=== PATIENT | female | born 1965 | race Caucasian/White ===

== ENCOUNTER → 2016-07-18 | Day surgery (SDC) | payer BC ==
[~2016-07-18] MED LIST: CLIMARA 0.1 MG0.1 MG EXT; ESTRACE0.5 MG PO; FUROSEMIDE40 MG PO; IBUPROFEN800 MG PO; LEXAPRO20 MG PO; LINESS PO; LINZESS290 MCG PO; LORTAB 10-3251 EACH PO; NAPROSYN-EC500 M1 PO; NORCO 10-325 TA1 TAB PO; OXYCODONE HCL15 MG PO; OXYCODONE HCL20 M1 PO; OXYCODONE15 MG PO; POTASSIUM CHLO20 ME1 PO; PROZAC PO; PROZAC40 MG PO; SIMVASTATIN40 MG PO; STRATTERA PO; STRATTERA40 MG PO; TOPAMAX PO; XANAX1 MG PO; ZANAFLEX4 M1 PO
--- NOTE | ~2016-07-18 | OR ---
Unit #: [id number] #: [id number] Patient: ARLENE BELL [id number] [address] [place], [place] [address] [id number] O MR#: [id number] NAME: ARLENE BELL ROOM: Date of Procedure: 07/18/2016 Admission Date: 07/18/2016 Surgeon: Chris Ramsay M.D. : 1965 Attending Physician: Chris Ramsay M.D. Primary Care Physician: Latasha Núñez M.D. PROCEDURE OPERATIVE NOTE PREOPERATIVE DIAGNOSIS 1. Severe PS of lower extremity. 2. Back pain, radiculopathy, spondylolisthesis. POSTOPERATIVE DIAGNOSIS 1. Severe PS of lower extremity. 2. Back pain, radiculopathy, spondylolisthesis. PROCEDURE PERFORMED Lumbar epidural steroid injection, intravenous sedation, fluoroscopic guidance and needle localization. HISTORY The patient is a 51-year-old female with a previously mentioned chronic issues and a flare of the pain. In the past when she has flared she has done well with epidural steroid injections to both provide a sympathectomy to help flare and severe PS symptoms and her back pain like radiculopathy. Last injections via epidural approach done a year ago. She was a single LSP that helped somewhat but did not last as long for the severe PS symptoms. There is no plans to do an epidural steroid injection. PROCEDURE The patient was placed in a seated position. Standard monitors were applied. 4 mg of Versed were given for sedation and anxiolysis, which were adequate. Vital signs remained stable. Sterile prep and drape then of the lumbar area was performed. The skin at the L4-L5 level was localized with 1% lidocaine. An 18-gauge [employer] needle was then advanced in loss of resistance technique and fluoroscopic guidance in toward the epidural space. After confirming proper positioning with fluoroscopy and radiographic contrast, 80 mg of Depo-Medrol and 6 mL of 0.125% bupivacaine were deposited. The patient tolerated the procedure otherwise well and was discharged to the recovery room in stable condition. Dictated by... Kelley Liriano/eli TD: 07/25/2016 10:42 JOB #: [id number] Unit #: [id number] #: [id number] Patient: ARLENE BELL PROCEDURE OPERATIVE NOTE Page 1 of 1 X Chris Ramsay MD X PROCEDURE OPERATIVE NOTE
== END | disposition home or self-care (01) ==
LOC: CCSC 06:54
DX: G89.29 Other chronic pain (principal); M54.16 Radiculopathy, lumbar region; M43.16 Spondylolisthesis, lumbar region; I28.8 Other diseases of pulmonary vessels
CPT/HCPCS: J1040; J2250

== ENCOUNTER → 2016-11-02 | Day surgery (SDC) | payer BC ==
--- NOTE | ~2016-11-02 | OR ---
Unit #: [id number] #: [id number] Patient: ARLENE BELL [id number] [address] [place], [place] [address] [id number] O MR#: [id number] NAME: ARLENE BELL ROOM: Date of Procedure: 11/02/2016 Admission Date: 11/02/2016 Surgeon: Chris Ramsay M.D. : 1965 Attending Physician: Chris Ramsay M.D. Primary Care Physician: Latasha Núñez M.D. OPERATIVE REPORT PREOPERATIVE DIAGNOSES Back pain, radiculopathy, spondylolisthesis, degenerative disk disease, chronic regional pain syndrome of the lower extremity. POSTOPERATIVE DIAGNOSES Back pain, radiculopathy, spondylolisthesis, degenerative disk disease, chronic regional pain syndrome of the lower extremity. Postop same. PROCEDURE PERFORMED Lumbar epidural steroid injection with intravenous sedation and fluoroscopic guidance for needle localization. INDICATIONS FOR PROCEDURE The patient is a 51-year-old female with previously mentioned diagnosis. She has nonsurgical pathology. She has spinal cord stimulator in place for her CRPS, which generally has been fairly helpful for that. There is overlapping symptoms of back with radiculopathy of all times and also flare of her CRPS issues. Epidural steroids have used to help with her back and radicular pain, usually used a large amount of local to help settle down via sympathectomy. DESCRIPTION OF PROCEDURE The patient was placed in a seated position. Standard monitors were applied. 4 mg of Versed and 50 mcg of fentanyl were given for sedation and anxiolysis, which were adequate. Vital signs remained stable. Sterile prep and drape then of lumbar area was performed. The skin then at the L4 level was localized with 1% lidocaine. An 18-gauge [employer] needle was then advanced via loss of resistance technique and fluoroscopic guidance in toward the epidural space. After confirming proper positioning with fluoroscopy and radiographic contrast, 80 mg of Depo-Medrol and 6 mL of 0.125% bupivacaine were deposited. The patient tolerated the procedure otherwise well and was discharged to the recovery room in stable condition. Dictated by... Kelley Liriano/nick TD: 11/02/2016 13:08 Unit #: [id number] #: [id number] Patient: ARLENE BELL JOB #: [id number] OPERATIVE REPORT Page 1 of 1 X Chris Ramsay MD X PROCEDURE OPERATIVE NOTE
== END | disposition home or self-care (01) ==
LOC: CCSC 07:53
DX: G89.4 Chronic pain syndrome (principal); M51.16 Intervertebral disc disorders with radiculopathy, lumbar region; M43.16 Spondylolisthesis, lumbar region
CPT/HCPCS: J1040; J2250; J3010

== ENCOUNTER → 2016-11-23 | Day surgery (SDC) | payer BC ==
--- NOTE | ~2016-11-23 | OR ---
Unit #: [id number] #: [id number] Patient: ARLENE BELL [id number] [address] [address] [id number] O MR#: [id number] NAME: ARLENE BELL ROOM: Date of Procedure: 11/23/2016 Admission Date: 11/23/2016 Surgeon: Chris Ramsay M.D. : 1965 Attending Physician: Chris Ramsay M.D. Primary Care Physician: Latasha Núñez M.D. OPERATIVE REPORT PREOPERATIVE DIAGNOSES 1. Chronic regional pain syndrome of the lower extremity. 2. Low back pain, radiculopathy, degenerative lumbar disk disease. POSTOPERATIVE DIAGNOSES 1. Chronic regional pain syndrome of the lower extremity. 2. Low back pain, radiculopathy, degenerative lumbar disk disease. PROCEDURE PERFORMED Lumbar epidural steroid injection with intravenous sedation and fluoroscopic guidance for needle localization. INDICATIONS FOR PROCEDURE The patient is a 51year-old female with dual diagnosis of CRPS of the left lower extremity and back pain with radiculopathy associated with degenerative disk and spine disease. The patient was treated with spinal cord stimulation fairly significant for the CRPS issues. The back treated with epidural steroids on an as needed basis. Injection done 3 weeks ago resulted in about 50% settling of her symptom complex not quite to the level she usually does. Based on a good response, we are going to proceed with a final injection. DESCRIPTION OF PROCEDURE The patient was placed in a seated position. Standard monitors were applied. 4 mg of Versed and 50 mcg of fentanyl given for sedation and anxiolysis, which were adequate. Vital signs remained stable. Sterile prep and drape then of the lumbar area was performed. The skin then at the L3 level was localized with 1% lidocaine. An 18-gauge [employer] needle was then advanced via loss of resistance technique and fluoroscopic guidance in toward the epidural space. After confirming proper positioning with fluoroscopy and radiographic contrast, 80 mg of Depo-Medrol and 6 mL of 0.125% bupivacaine were deposited. The patient tolerated the procedure otherwise well and was discharged to the recovery room in stable condition. Dictated by... Chris Ramsay M.D. P/nick Unit #: [id number] #: [id number] Patient: ARLENE BELL TD: 11/23/2016 11:02 JOB #: [id number] OPERATIVE REPORT Page 1 of 1 X Chris Ramsay MD X PROCEDURE OPERATIVE NOTE
== END | disposition home or self-care (01) ==
LOC: CCSC 11-16 11:00
DX: G90.522 Complex regional pain syndrome I of left lower limb (principal); M51.16 Intervertebral disc disorders with radiculopathy, lumbar region
CPT/HCPCS: J1040; J2250; J3010

== ENCOUNTER → 2016-12-26 | Outpatient (CLI) | payer BC ==
--- NOTE | ~2016-12-26 | EKG ---
PATIENT: ARLENE BELL UNIT #: [id number] Ventricular Rate: 67 BPM Atrial Rate: 67 BPM P-R Interval: 180 ms QRS Duration: 66 ms Q-T Interval: 418 ms QTC Calculation(Bezet): 441 ms P [place]: 49 degrees Calculated R [place]: 39 degrees Calculated T [place]: 37 degrees Diagnosis Line: Normal sinus rhythm Diagnosis Line: Low voltage QRS Diagnosis Line: Borderline ECG Diagnosis Line: No previous ECGs available Diagnosis Line: Confirmed by MYA VELEZ MD ([id number]) on Diagnosis Line: 12/26/2016 12:40:40 PM INTERPRETING MD: AGUSTIN BORJA
--- NOTE | ~2016-12-26 | CO ---
Unit #: [id number] #: [id number] Patient: ARLENE BELL [id number] [address] [place], [place] [address] [id number] O MR#: [id number] NAME: ARLENE BELL ROOM: Age: 51 Sex: F Admission Date: 12/26/2016 : 1965 Attending Physician: Nikolai Azul M.D. Primary Care Physician: Latasha Núñez M.D. Consultation Date: 12/26/2016 CONSULTATION REPORT REASON FOR CONSULTATION Preoperative medical evaluation prior to right knee unicompartmental arthroplasty scheduled by Dr. Azul for 01/18/2017. HISTORY OF PRESENT ILLNESS The patient is a 51-year-old female, who presents to preprocedural screening for the reasons indicated above. She complains of right knee pain at the time of this interview, but has no other complaints at this time. She denies upper chest, upper back, arm, neck, jaw pain or pressure. Denies dyspnea on exertion, paroxysmal nocturnal dyspnea, orthopnea and/or sleep apnea. She denies lightheadedness, dizziness, presyncope, syncope or palpitations. She denies history of myocardial infarction, congestive heart failure, CVA, TIA, diabetes mellitus and chronic kidney disease. She has been evaluated by Dr. Azul and scheduled for the above-referenced procedure. PAST MEDICAL HISTORY 1. Osteoarthritis. 2. Obesity, BMI of 34. 3. Cardiac murmur. 4. Chronic low back pain. 5. RSD of the left leg established with Dr. Ramsay for pain management. 6. Anxiety and depression. 7. Hyperlipidemia. 8. Irritable bowel syndrome, constipation, recurrent urinary tract infections and dental implants, recently undergoing dental evaluation. PAST SURGICAL HISTORY 1. Right knee arthroscopy. Left knee arthroscopy x2. Left knee meniscus transplant. Left knee partial knee replacement. Left knee scar tissue excision. 2. Right carpal tunnel release. 3. Left elbow surgery x2. 4. Pain stimulator placement. The patient denies a personal and family history of complications to anesthesia. ALLERGIES Denies latex allergy. Denies medication allergies. CURRENT MEDICATIONS Xanax 1 mg p.o. b.i.d., simvastatin 40 mg p.o. at bedtime, Strattera 60 mg p.o. daily, ibuprofen 800 mg p.o. b.i.d. p.r.n. pain, Linzess 290 mcg p.o. daily, furosemide 40 mg p.o. daily p.r.n. lower extremity edema, Zanaflex Unit #: [id number] #: [id number] Patient: ELECTRONICS DESIGN ENGINEER,ARLENE COFFEY 4 mg p.o. t.i.d. p.r.n. muscle spasm, KCl 20 mEq p.o. daily p.r.n. with Lasix, Climara 0.1 mg per 24 hour daily before breakfast, Prozac 60 mg p.o. daily, oxycodone/HCl 20 mg p.o. 5 times daily. SOCIAL HISTORY Denies tobacco use, EtOH use and illicit drug use. FAMILY HISTORY Per review of Dr. Azul's office note; father, coronary artery disease, hypertension, hyperlipidemia; brother with hypertension and hyperlipidemia. REVIEW OF SYSTEMS The patient reports intermittent bilateral lower extremity edema. She has recently undergone laser to take a look at her dental implants. She states there are no active infections and that her dentist is aware that she is planning on having the right knee surgery. She denies need for predental procedure antibiotics. A 10-point review of systems is conducted and otherwise negative except as indicated under history of present illness and past medical history above. PHYSICAL EXAMINATION GENERAL: A 51-year-old, female, awake, alert, in no acute distress. VITAL SIGNS: Temperature 97.8, heart rate 68, respiratory rate 16, blood pressure 120/75, oxygen saturation 99% on room air. HEENT: Atraumatic and normocephalic. Sclerae anicteric. No discharge from eyes, ears, or nares. LYMPH: No preauricular, postauricular, tonsillar, submental, anterior, posterior cervical adenopathy. ENDOCRINE: No thyromegaly, thyroid nodules, or tenderness. RESPIRATORY: Clear to auscultation in all wang bilaterally without wheezes, rhonchi, or rales. CARDIOVASCULAR: S1, S2. Regular rate and rhythm without murmur or rub. GI: Bowel sounds are positive x4. Soft, nontender, nondistended. EXTREMITIES: 1+ bilateral lower extremity edema, nonpitting without cyanosis or clubbing. MUSCULOSKELETAL: Strength 5/5 in all extremities bilaterally to flexion-extension. NEUROLOGIC: Alert and oriented x3. Speech clear. Follows directions during examination. DIAGNOSTIC STUDIES LABORATORY RESULTS: WBC 6.1, hemoglobin 12.6, hematocrit 37.3, platelet count 331,000. Sodium 138, potassium 3.6, chloride 102, CO2 of 30, glucose 90, BUN 9, creatinine 1.0, calcium 8.7, AST 22, ALT 16, alkaline phos 43, bilirubin total 0.2, total protein 6.7, albumin 3.7. PT 10.5, INR 1.0. Urinalysis; leukocyte esterase trace, nitrites negative, blood negative, rbc 0 to 2, wbc 2 to 5, bacteria negative, squamous cells few. Urine culture and sensitivity not indicated at this time. Blood type A positive, antibody screen negative. MRSA nasal swab report pending at this time. IMAGING STUDIES: Two-view chest x-ray report pending at this time. CARDIOLOGY: 12-lead EKG, normal sinus rhythm, low-voltage QRS, borderline ECG. Confirmed report is pending at this time. IMPRESSION Unit #: [id number] #: [id number] Patient: ARLENE BELL The patient is a 51-year-old female, who presents to preprocedural screening for, 1. Preoperative medical evaluation prior to elective right knee unicompartmental arthroplasty. The patient's Chapman revised cardiac risk index is equal to 0.4% to 0.5% based on risk factors and information available today. This represents the patient's rate of fatal or nonfatal myocardial infarction, cardiopulmonary arrest, arrhythmia and/or pulmonary edema. This has been discussed in detail with the patient. She wishes to proceed with surgery as scheduled at this time. 2. Obesity, BMI of 34. Weight loss to recommended BMI is suggested. 3. History of cardiac murmur. This is inaudible today. The patient states she no longer requires SBE prophylaxis. 4. History of low back pain, stable. 5. History of reflex sympathetic dystrophy, left leg; established with Dr. Ramsay for pain management. 6. Anxiety. The patient is stable from this standpoint today. We will continue home medications and hold for sedation postoperatively. 7. Hyperlipidemia. Continue statin perioperatively and suggest healthy heart diet. 8. Irritable bowel syndrome-C. We will continue Linzess and monitor for bowel function postoperatively. 9. Depression, stable. Continue Prozac at current dose and monitor sodium postoperatively. 10. History of urinary tract infections. Urinalysis is negative today and the patient is asymptomatic. 11. Health maintenance. Again, the patient is in process of dental implant evaluation by her dentist. She has no issues and no known infection at this time. Thank you for allowing us to participate in the care of this patient. We will gladly follow her for postop medical management pending order of Dr. Azul. Dictated by... Eusebia Stinson A.P.R.N. for Kelley Ayala/nick TD: 12/27/2016 00:41 JOB #: [id number] CONSULTATION REPORT Page 1 of 1 X Eusebia Stinson INFRASTRUCTURE MANAGER X CONSULTATION REPORT
--- NOTE | ~2016-12-26 | CR63 ---
[facility] A Service of [facility] RADIOLOGY TEXT RESULTS PATIENT: ARLENE BELL LOCATION: [facility] : [birth year] UNIT #: [id number] AGE: [address]: Nikolai Azul MD SEX: F ORDER DR: [id number] [facility] [address] [place], [place] [address] [id number] O MR#: [id number] Acc #: [id number] NAME: ARLENE BELL : 1965 SEX: F STUDY DATE/TIME: 12/26/2016 9:34 UNIT: [facility] ROOM: STUDY DESCRIPTION: CR Chest 2 View Attending Physician: Nikolai Azul M.D. Referring Physician: Nikolai Azul M.D. Ordering Physician: Nikolai Azul M.D. Primary Care Physician: Latasha Núñez M.D. MEDICAL IMAGING REPORT This report is preliminary unless electronic signature is present EXAM Chest x-ray 12/26 INDICATIONS Preoperative exam for knee surgery on 01/08/2017. Former smoker. FINDINGS 2 views of the chest compared with 02/11/2010. Heart is enlarged. Lung volumes are relatively low. Interstitial prominence is concerning for mild degree of edema. Correlate clinically. Patient has intraspinal catheters. IMPRESSION Cardiomegaly with findings concerning for mild degree of pulmonary edema. Dictated by... Chuckie Montes Jr., M.D. THIS IS AN ELECTRONICALLY VERIFIED REPORT Chuckie Montes Jr., M.D. at 12/27/2016 2:09 PM HARPER/yulisa TD: 12/26/2016 15:59 JOB #: [id number] MEDICAL IMAGING REPORT Page 1 of 1 COPY
[2016-12-26 08:40] LABS: HEMATOCRIT 37.3 % (35.0-45.0); HEMOGLOBIN 12.6 gm/dL (12.0-16.0); MEAN CELL VOLUME 86.2 FL (83-96); MEAN CORPUSCULAR HGB CONC 33.7 g/dL (30-36); MEAN PLATELET VOLUME 6.9 FL (6.5-11.5); RED BLOOD COUNT 4.33 X10e (3.90-5.30); RED CELL DISTRIBUTION WIDTH 13.3 % (11.0-15.5); WHITE BLOOD COUNT 6.1 X10e3 (4.0-10.5)
[2016-12-26 08:57] LABS: PROTHROMBIN TIME (PATIENT) 10.5 SECONDS (10.0-11.7)
[2016-12-26 09:29] LABS: ALBUMIN SERUM 3.7 g/dL (3.5-5.0); BILIRUBIN,TOTAL 0.2 mg/dL (0.2-2.0); CALCIUM SERUM 8.7 mg/dL (8.4-10.2); GLOM FILT RATE Estimated 64.8 mL/min (>60); POTASSIUM 3.6 mmol/L (3.5-5.1); PROTEIN TOTAL SERUM 6.7 g/dL (6.0-8.3)
[2016-12-26 10:02] LABS: URINE APPEARANCE CLEAR; URINE BILIRUBIN NEG (NEG); URINE BLOOD NEG (NEG); URINE COLOR YELLOW; URINE GLUCOSE NEG (NEG); URINE KETONE NEG (NEG); URINE LEUKOCYTE ESTERASE TRACE (NEG); URINE NITRATE NEG (NEG); URINE PH 6.5 (5-8); URINE PROTEIN NEG (NEG); URINE SPECIFIC GRAVITY 1.013 (1.003-1.035); URINE UROBILINOGEN 0.2 MG/DL (NEG)
[2016-12-26 10:06] LABS: U HYALINE CASTS AUWI 0-2 /[LPF]; URBCS1 AUWI 0-2 /[HPF] (0-2); URINE BACTERIA AUWI NEG (NEGATIVE); URINE SQUAMOUS EPITHELIAL CELL FEW /[HPF]
[2016-12-26 10:09] LABS: CULTURE INDICATED? NO; URINE SOURCE CLEAN CATCH
== END | disposition home or self-care (01) ==
LOC: CAMB 08:00
PROVIDERS: Orthopaedic Surgery
DX: Z01.818 Encounter for other preprocedural examination (principal); M17.11 Unilateral primary osteoarthritis, right knee; I51.7 Cardiomegaly
CPT/HCPCS: 36415; 71020; 80053; 81003; 85027; 85610; 86850; 86900; 86901; 87070; 93005